=== PATIENT | female | born 2000 | race Two or more races ===

== ENCOUNTER 2023-09-18 21:52 | Emergency (ER) | payer OTHER ==
[~2023-09-18] VITALS: Ht 162.6 cm; Wt 59.0 kg
[2023-09-18] MEDS ORDERED: KETOROLAC TROMETHAMINE 30 MG VIAL IV ONE (22:15)
== END 2023-09-19 00:27 | disposition home or self-care (01) ==
LOC: ER 21:52
DX: S93.491A Sprain of other ligament of right ankle, initial encounter (principal); X58.XXXA Exposure to other specified factors, initial encounter; Y93.89 Activity, other specified; Y92.89 Other specified places as the place of occurrence of the external cause; Y99.8 Other external cause status